=== PATIENT | female | born 1960 | race Caucasian/White ===

== ENCOUNTER 2017-02-26 07:56 | Day surgery (SDC) | payer MEDICARE, MEDICAID ==
[~2017-02-26] VITALS: Ht 154.9 cm; Wt 69.9 kg
[~2017-02-26 07:56] MED LIST: ADULT LOW DOSE81 MG PO; AMOXICILLIN/CLA1 TA2 PO; CIPRO 500MG TA500 MG PO; DICLOFENAC SOD75 MG PO; DUONEB 3 MG/3 ML3 ML IH; FLEXERIL10 M1 PO; FLEXERIL10 MG PO; GABAPENTIN300 M1 PO; LORTAB 5/500 501 TAB PO; LORTAB 500 MG-71 TAB PO; MEDROL 4MG. DOSE4 MG PO; MELOXICAM7.5 MG PO; NORCO 325 MG-51 TAB PO; OMNICEF 300 MG300 MG PO; PHENERGAN 25MG.25 M1 PO; PREDNISONE 20MG20 MG PO; RANITIDINE HCL150 MG PO; TESSALON PERLE100 MG PO; TORADOL10 MG PO; ULTRAM50 MG PO; VALIUM 5MG TABLE5 MG PO; VIBRAMYCIN 100100 MG PO; VICODIN 5/500 T1 TAB PO
--- NOTE | 2017-02-26 09:31 | Operative Note ---
Surgeon/Diagnoses Surgeon/Hadoop Administrator(s) Date of procedure: 02/26/17 Surgeon: MD Francine Casillas Diagnoses Pre-op diagnosis: Dysphagia Melena Bright red blood per rectum Hemorrhoids Post-op diagnosis Same as preoperative diagnoses, with the addition of the following: Gastritis Procedure Procedure Procedure: Esophagogastroduodenoscopy with biopsy Colonoscopy Indications: SHLOMO BONILLA is a 56 year-old Female with a history of intermittent dysphagia, occasional melena, occasional bright red blood per rectum, and a documented history of hemorrhoids. Findings: Moderate focal lobular inflammatory changes in gastric antrum Bowel preparation moderate for colonoscopy Fairly significant spasticity of colon Hemorrhoidal cushions and mild tags with no active bleeding or thrombosis Procedure Description: After informed consent was obtained, the patient was taken to the endoscopy suite. Monitored anesthesia care ensued after she was transferred to the LEFT lateral decubitus position. The gastroscope was advanced. The gastroesophageal junction was at 39 cm. The stomach was entered. An area of lobular focal patchy moderate gastritis was noted in the antrum and multiple biopsies were obtained. Retroflexion revealed very small sliding hernia and only seen on maximal insufflation. The pylorus was intubated. The duodenal mucosa appeared relatively normal. The gastroscope was carefully removed. Digital rectal exam revealed some mild hemorrhoidal tags/cushions. The colonoscope was placed in position. The entire colon was evaluated. Bowel preparation was moderate with large volume irrigation and suctioning used to improve visualization. Fairly significant spasticity was encountered. No mucosal lesions were seen. Hemorrhoidal cushions with no active bleeding or thrombosis were confirmed. The colonoscope was carefully removed and the patient was transferred to recovery. EBL (ml): 1 Anesthesia: Monitored anesthesia care Complications: No immediate Specimens: Focal lobular inflammatory change in gastric antrum Disposition Disposition: Stable to recovery from where she will be discharged home. She will follow-up in one week. Repeat colonoscopy should be around 5 years secondary to moderate bowel preparation and spasticity. Please note that no significant abnormality was noted on the patient's colonoscopy in 2013. at 0931
[2017-02-26 13:55] VITALS: BP 103/53
== END 2017-02-26 10:00 | disposition home or self-care (01) ==
LOC: SDC 07:56
PROVIDERS: Surgery
PROC: 0DB68ZX Excision of Stomach, Via Natural or Artificial Opening Endoscopic, Diagnostic (ICD-10-PCS; 2017-02-26)
PROC: 0DBE8ZX Excision of Large Intestine, Via Natural or Artificial Opening Endoscopic, Diagnostic (ICD-10-PCS; principal; 2017-02-26 09:00)
DX: K92.1 Melena (principal); K64.9 Unspecified hemorrhoids; R13.10 Dysphagia, unspecified; K29.70 Gastritis, unspecified, without bleeding

== ENCOUNTER → 2017-11-03 | Outpatient (CLI) | payer MEDICARE, MEDICAID ==
[~2017-11-03] MED LIST changes: +LORTAB 7.5/3251 TAB PO; +PHENERGAN25 M3 PO
[2017-11-03 08:54] LABS: LYMPH # 12.8 K/mm3 (0.7-4.5); LYMPH % 75.1 % (10-50.0)
[2017-11-03 09:49] LABS: BUN 9 mg/dL (7-18)
[2017-11-03 09:55] LABS: GFR (ESTIMATED) 74 ML/MIN (59-)
[2017-11-03 11:26] LABS: NEUTROPHILS 9 % (42-76)
--- NOTE | 2017-11-04 09:15 | RADIOLOGY REPORT PS360 ---
CT ABD PELVIS W/ CONTRAST CLINICAL INDICATION: HAIRY CELL LEUKEMIA--MALAISE ORDERING PHYSICIAN: Chance Balbuena MD PATIENT AGE: 57 years COMPARISON: 04/18/1715 TECHNIQUE: Axial images obtained with sagittal and coronal reformats. PROCEDURE: Oral Contrast: Redicat IV Contrast: 75 mL of Isovue-370 performed in conjunction with the chest CT. FINDINGS: There is a 6 mm isodensity in the left hepatic lobe medial segment unchanged. No other liver lesions are evident. There has been a prior cholecystectomy. The spleen is mildly 14 cm not significantly changed. There are few scattered small lymph nodes in the pericardial region unchanged. Some small lymph nodes in the celiac area and portal area are once again noted unchanged. The largest node in the portal region is approximately 13 x 17 mm no new areas of adenopathy are evident. There is been a prior hysterectomy. No pelvic mass or abnormal fluid collection. There is tiny umbilical hernia containing fat. Surgical clips are present right quadrant. No focal inflammatory change intestinal obstruction, free air, or abnormal fluid collection evident There is mild wedging of L3 vertebral body along the left aspect which is developed since the previous exam does not appear acute. IMPRESSION: 1. Overall no significant change in the splenomegaly and mild periportal adenopathy. 2. Mild wedging of the left aspect of L3 which is developed in the interval but does not appear acute Enlarged measuring 3. Other nonacute findings as described above
--- NOTE | 2017-11-09 06:24 | RADIOLOGY REPORT PS360 ---
CT CHEST W/ CONTRAST INDICATION: HAIRY CELL LEUKEMIA--MALAISE ORDERING PHYSICIAN: Chance Balbuena MD PATIENT AGE: 57 years COMPARISON: 06/05/2014 TECHNIQUE: Axial images are obtained with 75 mL's of Isovue-370 contrast. Sagittal and coronal reformatted images are reviewed as well. FINDINGS: There is a heterogeneously enhancing nodule within the mid to lower pole of the right lobe of the thyroid gland measuring 2.4 x 2.6 cm. Consider ultrasound for further evaluation. There are scattered small mediastinal nodes small right hilar lymph nodes which are unchanged. Right hilar node measures approximately 12 mm unchanged. There are mild atelectatic changes in the lung bases. No evidence of aortic aneurysm. There is mild splenomegaly at 14 cm IMPRESSION: 1. New right thyroid nodule measuring 2.4 cm. Consider ultrasound of the thyroid gland with ultrasound guided fine-needle aspiration for further evaluation 2. Otherwise no change. Mild atelectatic/fibrotic changes are present in the lower lobes. 3. Stable small mediastinal and right hilar lymph nodes
== END ==
LOC: RAD 08:31
PROVIDERS: Internal Medicine Adolescent Medicine
DX: J43.1 Panlobular emphysema (principal); J18.0 Bronchopneumonia, unspecified organism; C91.40 Hairy cell leukemia not having achieved remission; R53.83 Other fatigue; R53.81 Other malaise
CPT/HCPCS: Q9967